=== PATIENT | male | born 1950 | race Caucasian/White ===

== ENCOUNTER → 2016-10-12 | Outpatient (REF) | payer OTHER ==
[2016-10-12 16:43] LABS: ALBUMIN 3.7 GM/DL (3.2-5.2); ALBUMIN/GLOBULIN RATIO 1.42 (1.00-1.93); ALKALINE PHOSPHATASE 98 U/L (45-117); ALT/SGPT 22 U/L (12-78); ANION GAP 9 MEQ/L (8-16); AST/SGOT 16 U/L (15-37); BILIRUBIN,TOTAL 0.7 MG/DL (0.2-1.0); BLOOD UREA NITROGEN 8 MG/DL (7-18); CALCIUM LEVEL 8.5 MG/DL (8.8-10.2); CARBON DIOXIDE LEVEL 24 MEQ/L (21-32); CHLORIDE LEVEL 111 MEQ/L (98-107); CHOLESTEROL LEVEL 181 MG/DL (<200); CREATININE FOR GFR 0.89 MG/DL (0.70-1.30); GLOMERULAR FILTRATION RATE > 60.0 (>49); GLUCOSE, FASTING 81 MG/DL (80-110); POTASSIUM SERUM 4.4 MEQ/L (3.5-5.1); SODIUM LEVEL 144 MEQ/L (136-145); TOTAL PROTEIN 6.3 GM/DL (6.4-8.2); TRIGLYCERIDES LEVEL 96 MG/DL (<150)
== END ==
LOC: M SFHCLACO 08:55
PROVIDERS: ATTEND Physician Assistant
DX: E78.2 Mixed hyperlipidemia (principal); E11.9 Type 2 diabetes mellitus without complications; I10 Essential (primary) hypertension

== ENCOUNTER → 2017-01-17 | Outpatient (CLI) | payer OTHER ==
[~2017-01-17] MED LIST: ISOVUE-370 76% 100ML VIAL (Q9967) As Ordered ONE
--- NOTE | 2017-01-18 09:16 | REP ---
CT abdomen pelvis without and with IV contrast: Without oral contrast. History: Left upper quadrant abdominal mass. Comparison CT study is from March 12 2010. The patient gives a history of colon carcinoma status post colon resection, colostomy, and gastric bypass. CT contrast dose: 100 ml of intravenous Isovue 370. 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 The lung bases are clear. There is no evidence of pleural effusion or upper abdominal ascites. The liver and the spleen are normal in size and homogeneous in texture. Gallbladder surgically absent. The patient status post gastric bypass procedure. No adrenal lesion is seen on either side. There is a cyst in the left mid kidney measuring 2.1 cm in greatest diameter. The patient is status post ventral hernia repair. A left colostomy is seen with small peristomal hernia containing distal left colon loop. The patient is also status post left colon resection and reanastomosis with rectosigmoid mucous fistula. There is also an anastomosis in the distal small bowel. No obstruction is seen. No retroperitoneal mass or abdominal adenopathy is seen. Normal caliber aorta. No bony destructive lesion. No other abdominal wall defect. Impression: Postoperative changes. No mass, adenopathy or evidence of metastatic disease seen. Small cyst left kidney. Signed by Julio Mcclendon MD 01/18/2017 04:15 P
== END ==
LOC: M RAD 17:36
PROVIDERS: ATTEND Physician Assistant
DX: R19.02 Left upper quadrant abdominal swelling, mass and lump (principal); N28.9 Disorder of kidney and ureter, unspecified
CPT/HCPCS: 74178; Q9967

== ENCOUNTER → 2017-01-21 | Outpatient (CLI) | payer OTHER ==
--- NOTE | 2017-01-21 09:15 | REP ---
Clinical: Palpable mass/lump. Technique: PA and lateral soft tissue neck radiographs. Findings: Airway is patent, midline and within normal limits. Surrounding soft tissues are unremarkable and without mass or mass effect. The prevertebral soft tissues are without subcutaneous emphysema or foreign body. Visualized cervical spine demonstrate advanced degenerative disc osteophyte complex at the C4-5, C5-6 levels. Impression: Degenerative changes of the mid cervical spine. Signed by Kings Vick MD 01/21/2017 09:06 A
== END ==
LOC: M SMT 08:55
PROVIDERS: ATTEND Physician Assistant
DX: R22.1 Localized swelling, mass and lump, neck (principal)

== ENCOUNTER → 2017-03-03 | Outpatient (CLI) | payer OTHER ==
[~2017-03-03] MED LIST changes: +ISOVUE-370 76% 100ML VIAL (Q9967) As Ordered; -ISOVUE-370 76% 100ML VIAL (Q9967) As Ordered ONE
== END ==
LOC: M RAD 07:51
DX: R22.1 Localized swelling, mass and lump, neck (principal)
CPT/HCPCS: Q9967

== ENCOUNTER → 2017-04-21 | Outpatient (REF) | payer OTHER ==
[2017-04-21 15:23] LABS: ALBUMIN 3.6 GM/DL (3.2-5.2); ALBUMIN/GLOBULIN RATIO 1.29 (1.00-1.93); ALKALINE PHOSPHATASE 91 U/L (45-117); ALT/SGPT 28 U/L (12-78); ANION GAP 9 MEQ/L (8-16); AST/SGOT 26 U/L (7-37); BILIRUBIN,TOTAL 0.7 MG/DL (0.2-1.0); BLOOD UREA NITROGEN 10 MG/DL (7-18); CALCIUM LEVEL 8.5 MG/DL (8.8-10.2); CARBON DIOXIDE LEVEL 25 MEQ/L (21-32); CHLORIDE LEVEL 110 MEQ/L (98-107); CHOLESTEROL LEVEL 189 MG/DL (<200); CHOLESTEROL RISK RATIO 2.661 (<5); CREATININE FOR GFR 0.94 MG/DL (0.70-1.30); GLOMERULAR FILTRATION RATE > 60.0 (>49); GLUCOSE, FASTING 87 MG/DL (70-100); HDL CHOLESTEROL 71 MG/DL (>40); LDL CHOLESTEROL 92.2 MG/DL (<100); NON-HDL-C 118 MG/DL; POTASSIUM SERUM 4.2 MEQ/L (3.5-5.1); SODIUM LEVEL 144 MEQ/L (136-145); TOTAL PROTEIN 6.4 GM/DL (6.4-8.2); TRIGLYCERIDES LEVEL 129 MG/DL (<150)
[2017-04-21 15:48] LABS: ESTIMATED AVERAGE GLUCOSE 108 MG/DL (60-110); HEMOGLOBIN A1c 5.4 %
== END ==
LOC: M SFHCLACO 08:26
DX: E78.2 Mixed hyperlipidemia (principal); I10 Essential (primary) hypertension; E11.9 Type 2 diabetes mellitus without complications
CPT/HCPCS: 80053

== ENCOUNTER 2017-05-17 07:28 | Day surgery (SDC) | payer OTHER ==
[2017-05-17] MEDS ORDERED: LIDOCAINE 1% MDV 20ML VIAL SQ (07:45)
[2017-05-17] MEDS ORDERED: MIDAZOLAM INJ 2 MG/2 ML VIAL (J2250) As Ordered (08:26)
[2017-05-17] MEDS ORDERED: fentaNYL 100 MCG/2 ML INJECTION (J3010) As Ordered ×2 (08:28→09:56)
[2017-05-17] MEDS ORDERED: PROPOFOL 200 MG/20 ML VIAL As Ordered (08:34)
[2017-05-17] MEDS ORDERED: ONDANSETRON 4MG/2ML VIAL (J2405) As Ordered ×2 (08:34→11:41)
[2017-05-17] MEDS ORDERED: LIDOCAINE 2% INJ 100 MG/5 ML SDV (FOR ANES.) As Ordered (08:34)
[2017-05-17] MEDS ORDERED: ROCURONIUM BROMIDE 50 MG/5 ML VIAL As Ordered (08:36)
[2017-05-17] MEDS: dexameTHASONE 4 MG/ML 1ML VIAL (J1100) IV (08:45)
[2017-05-17] MEDS: LIDOCAINE W/EPINEPHRINE 1% 20ML VIAL As Ordered (09:54)
[2017-05-17] MEDS ORDERED: NEOSTIGMINE 10 MG/10 ML VIAL (J2710) As Ordered (10:55)
[2017-05-17] MEDS ORDERED: GLYCOPYRROLATE INJ 0.2 MG/ML 2 ML VIAL As Ordered (10:55)
[2017-05-17] MEDS ORDERED: PERCOCET 5MG/325MG TAB As Ordered (11:41)
[2017-05-17] MEDS: ONDANSETRON 4MG/2ML VIAL (J2405) IV (11:48)
[2017-05-17] MEDS: PERCOCET 5MG/325MG TAB PO ×2 (11:57→12:30)
[2017-05-17] MEDS ORDERED: MEPERIDINE INJ 25 MG/ML VIAL (J2175) IV (12:00)
[2017-05-17] MEDS ORDERED: LR 1,000 ML IV (12:00)
[2017-05-17] MEDS ORDERED: METOCLOPRAMIDE INJ 10MG/2ML VIAL (J2765) IV (12:00)
[2017-05-17] MEDS ORDERED: fentaNYL 100 MCG/2 ML INJECTION (J3010) IV (12:00)
== END 2017-05-17 13:31 | disposition home or self-care (01) ==
LOC: M SDC 07:28
DX: Q18.0 Sinus, fistula and cyst of branchial cleft (principal); Z85.09 Personal history of malignant neoplasm of other digestive organs; Z92.21 Personal history of antineoplastic chemotherapy; Z92.3 Personal history of irradiation; Z98.84 Bariatric surgery status; Z79.899 Other long term (current) drug therapy
CPT/HCPCS: 42810

== ENCOUNTER 2019-05-10 08:18 | Day surgery (SDC) | payer MEDICARE, OTHER ==
[~2019-05-10] VITALS: Ht 190.5 cm; Wt 112.0 kg
[~2019-05-10 08:18] MED LIST changes: +CALC600T60 PO; +FLOM0.4C39 PO; +FLON1SPR; -ISOVUE-370 76% 100ML VIAL (Q9967) As Ordered; +MULT1TAB10 PO; +MULTCAP PO; +NS 1,000 ML IV SCH; +VITA100067 PO; +VITA50005 PO; +ZOLO50TA PO
[2019-05-10] MEDS ORDERED: propofoL 200 MG/20 ML VIAL As Ordered ONE (09:55)
--- NOTE | 2019-05-10 10:13 | ROOR ---
Patient Name: Lennox Echeverria Procedure Date: 05/10/2019 9:48 AM Date of : 1950 Age: 68 Room: [facility] Gender: Male Note Status: Finalized Procedure: Colonoscopy Indications: High risk colon cancer surveillance: Personal history of colon cancer Providers: Ede Bourne Jr, MD Referring MD: KARINA Castellanos PA-C Requesting Provider: Medicines: Propofol per Anesthesia Complications: No immediate complications. Procedure: Pre-Anesthesia Assessment: - Prior to the procedure, a History and Physical was performed, and patient medications and allergies were reviewed. The patient is competent. The risks and benefits of the procedure and the sedation options and risks were discussed with the patient. All questions were answered and informed consent was obtained. Patient identification and proposed procedure were verified by the physician and the nurse in the pre-procedure area and in the procedure room. Mental Status Examination: alert and oriented. Airway Examination: normal oropharyngeal airway and neck mobility. Respiratory Examination: clear to auscultation. CV Examination: normal. ASA Grade Assessment: II - A patient with mild systemic disease. After reviewing the risks and benefits, the patient was deemed in satisfactory condition to undergo the procedure. The anesthesia plan was to use moderate sedation / analgesia (conscious sedation). Immediately prior to administration of medications, the patient was re-assessed for adequacy to receive sedatives. The heart rate, respiratory rate, oxygen saturations, blood pressure, adequacy of pulmonary ventilation, and response to care were monitored throughout the procedure. The physical status of the patient was re-assessed after the procedure. The Colonoscope was introduced through the sigmoid colostomy and advanced to the cecum, identified by appendiceal orifice and ileocecal valve. The colonoscopy was performed without difficulty. The patient tolerated the procedure well. The quality of the bowel preparation was adequate. Findings: The sigmoid colon, descending colon, transverse colon, ascending colon, cecum, appendiceal orifice and ileocecal valve appeared normal. An area of moderately congested mucosa was found in the rectum. Impression: - The sigmoid colon, descending colon, transverse colon, ascending colon, cecum, appendiceal orifice and ileocecal valve are normal. - Congested mucosa in the rectum. - No specimens collected. Recommendation: - Discharge patient to home (ambulatory). - Repeat colonoscopy in 5 years for surveillance. Ede Bourne MD Ede Bourne Jr, MD 05/10/2019 10:13:23 AM Electronically signed by Ede Bourne Jr, MD Number of Addenda: 0 Note Initiated On: 05/10/2019 9:48 AM Estimated Blood Loss: Estimated blood loss: none.
[2019-05-10 10:36] VITALS: BP 124/75
== END 2019-05-10 10:37 | disposition home or self-care (01) ==
LOC: M OPP 08:18
PROVIDERS: ATTEND Surgery
DX: Z12.11 Encounter for screening for malignant neoplasm of colon (principal); Z85.038 Personal history of other malignant neoplasm of large intestine; K62.89 Other specified diseases of anus and rectum; Z79.899 Other long term (current) drug therapy; Z93.3 Colostomy status; Z92.21 Personal history of antineoplastic chemotherapy; Z92.3 Personal history of irradiation; Z87.891 Personal history of nicotine dependence